=== PATIENT | male | born 1960 | race African-American/Black ===

== ENCOUNTER 2019-02-23 11:02 | Emergency (ER) | payer MEDICAID ==
[~2019-02-23] VITALS: Ht 177.8 cm; Wt 103.0 kg
[~2019-02-23 11:02] MED LIST: ASPI-1158; GLYB1.253; METF500T
[2019-02-23 11:17] VITALS: BP 124/81
[2019-02-23] MEDS ORDERED: BACITRACIN ZINC OINT UDPKT TOP ONE (15:00)
== END 2019-02-23 15:02 | disposition left against medical advice (07) ==
LOC: ER 11:21
DX: S81.812D Laceration without foreign body, left lower leg, subsequent encounter (principal); E11.9 Type 2 diabetes mellitus without complications; I25.2 Old myocardial infarction; I51.9 Heart disease, unspecified; F17.200 Nicotine dependence, unspecified, uncomplicated; Z88.0 Allergy status to penicillin; Z98.890 Other specified postprocedural states; W19.XXXD Unspecified fall, subsequent encounter
CPT/HCPCS: 99282